=== PATIENT | male | born 1940 | race Hispanic/Latino ===

== ENCOUNTER 2019-02-19 08:40 | Emergency (ER) | payer MEDICARE ==
[~2019-02-19 08:40] MED LIST: ASPI-1005 PO; LISI10TA7 PO; METF-444 PO; METO25 PO; NITR0.4T SL; SIMV20TA6 PO; TRAM50TA4 PO; TYL3 PO
[2019-02-19 09:25] LABS: BASOPHILS % (AUTO) 0.5 % (0.0-5.0); EOSINOPHILS % (AUTO) 0.5 % (0.0-8.0); HEMATOCRIT 40.6 % (42-54); LYMPHOCYTES % (AUTO) 20.6 % (21.0-51.0); MEAN CORPUSCULAR HEMOGLOBIN 29.3 pg (27.0-33.0); MEAN CORPUSCULAR HGB CONC 33.8 g/dL (32.0-36.0); MEAN CORPUSCULAR VOLUME 86.5 fL (79-99); MONOCYTES % (AUTO) 6.5 % (3.0-13.0); NEUTROPHILS % (AUTO) 71.9 % (40.0-77.0); PLATELET COUNT (AUTO) 227 K/uL (130-400); RED BLOOD CELL COUNT(AUTO) 4.69 MIL/uL (4.50-6.20); RED CELL DISTRIBUTION WIDTH 13.4 % (11.0-15.5); WHITE BLOOD COUNT (AUTO) 8.4 K/uL (4.8-10.8)
[2019-02-19 09:32] LABS: CREATININE 1.2 mg/dL (0.5-1.5); POTASSIUM 4.1 mmol/L (3.5-5.1)
[2019-02-19 09:37] LABS: BILIRUBIN,TOTAL 0.6 mg/dL (0.2-1.0); INR 1.02 (0.85-1.15); PARTIAL THROMBOPLASTIN TIME 25.4 SEC (26.3-35.5); PROTHROMBIN TIME 10.7 SEC (9.6-11.6); TOTAL PROTEIN, SERUM 7.9 g/dL (6.0-8.3)
== END 2019-02-19 11:11 | disposition home or self-care (01) ==
LOC: EDH 08:40
DX: K64.8 Other hemorrhoids (principal); E11.9 Type 2 diabetes mellitus without complications; E78.5 Hyperlipidemia, unspecified; I10 Essential (primary) hypertension; Z87.891 Personal history of nicotine dependence
CPT/HCPCS: 36415; 80053; 82270; 85025; 85610; 85730